=== PATIENT | male | born 1960 | race Caucasian/White ===

== ENCOUNTER 2023-12-25 09:21 | Emergency (ER) | payer BC, SELFPAY ==
[2023-12-25 09:25] VITALS: BP 145/105
--- NOTE | 2023-12-25 09:42 | ED.GENMED ---
History of Present Illness
General
Chief Complaint: Abdominal Symptoms
Time Seen by Provider: 12/25/23 09:42
Travel History
Have you had any contact with someone who has COVID-19?: No
Do you have any symptoms of coronavirus? Fever > 100 degrees, chills, cough, shortness of breath, sore throat, loss of taste or smell, muscle aches, or headache?: No
History of Present Illness
History of Present Illness:
HPI: The patient presents with abdominal distention. He has a history of GERD but no longer takes a PPI routinely. He did take 1 dose of a PPI yesterday. He had some fevers recently over the last couple of days. He had some minimal nausea but
has not been vomiting. Currently does not have nausea. The discomfort in the abdomen radiates to the left anterolateral chest. He occasionally drinks alcohol
EXAM:
GENERAL: Well appearing in no distress
HEENT: Moist oral mucosa
CARDIOVASCULAR: No murmurs, normal heart rate, regular rhythm, No chest wall tenderness
PULMONARY: No respiratory distress, breath sounds are clear and equal
ABDOMEN: Soft with no peritoneal signs, no tenderness, elevated BMI
NEUROLOGIC: Excellent strength all extremities, no coordination deficits
PSYCHIATRIC: Appropriate mental status, normal insight and judgement
EXTREMITIES: Nontender, no edema, moves all extremities equally
SKIN: No rash, no lesions
TIME OF INITIAL ENCOUNTER: 10 AM
NUMBER AND COMPLEXITY OF PROBLEMS ADDRESSED AT THE ENCOUNTER
� Chronic conditions affecting care: No significant past medical history
� Acute Exacerbation and/or Progression of Chronic Illness: This is an acute problem
� Differential Diagnosis includes: Bowel obstruction, GERD, esophagitis, mesenteric adenitis, based on location highly doubt appendicitis
AMOUNT AND/OR COMPLEXITY OF DATA TO BE REVIEWED AND ANALYZED
� I performed an independent evaluation of and my interpretation is:
EKG:
CT: I personally reviewed CT imaging and agree with radiologist interpretation�he suspects acute pancreatitis however there is no evidence of choledocholithiasis
X-rays:
Laboratory Studies: CBC unremarkable, chemistries including lipase and transaminases unremarkable
Other:
� Review of other/old records: I reviewed colonoscopy report from May 2023
� Clinical information was obtained by an independent historian: Spoke to family member at bedside
� Prescriptions/Medications Considered but not given:
� Further testing considered but not performed:
RISK OF COMPLICATIONS AND/OR MORBIDITY OR MORTALITY OF PATIENT MANAGEMENT
� Social determinants of health affecting care: Lives at home
� Discussion with other providers: Given the unclear etiology of patient's symptoms with abnormal CT, notified Dr. Gregory. We agree with close outpatient management as the patient is well-appearing and has not required any narcotic
analgesia here. Also recommended BRAT diet.
� Escalation of care including admission/observation vs risk of discharge considered: Declines analgesia however will obtain CT imaging given the fever and acute symptoms. CT imaging suggests pancreatitis with inflammatory
changes of the pancreatic head. However the lipase is normal. The white count is top normal. LFTs are normal. No other abnormality noted on CT imaging. The patient is very well-appearing on reassessment at 1:30 PM. I discussed with GI.
Recommended the BRAT diet / cessation of alcohol.
Past History
Social History
Tobacco: Non-smoker
Phy Exam
Physical Exam
Physical Exam:
See HPI
Course
Orders/Labs/Results
Orders:
Orders
12/25/23 09:45
0.9% Sodium Chloride 1000 ml [Nss] 1,000 ml IV BOLUS
12/25/23 09:53
Complete Blood Count/With Diff Urgent
Comprehensive Metabolic Panel Urgent
Lipase Urgent
12/25/23 09:59
CT Abd/pelvis W Iv Cont Urgent
Comment:
Reason For Exam: abd distension, fevers
Abnormal Lab Results
12/25/23
09:53
Absolute Neuts (auto) 7.3 H 10^3/uL
(1.4-6.5)
Absolute Monos (auto) 1.1 H 10^3/uL
(0.1-0.6)
Lymphocytes % 19.2 L %
(20.5-51.1)
Monocytes % 10.1 H %
(1.7-9.3)
Glucose 119 H mg/dl
(70-99)
12/25/23 09:53
12/25/23 09:53
Vital Signs
Initial and Last Documented VS:
Initial Vital Signs
Temp Pulse Resp BP Pulse Ox
98.1 F 78 16 145/105 98
12/25/23 09:25 12/25/23 09:25 12/25/23 09:25 12/25/23 09:25 12/25/23 09:25
Last Documented Vital Signs
Temp Pulse Resp BP Pulse Ox
98.1 F 78 16 145/105 98
12/25/23 09:25 12/25/23 09:25 12/25/23 09:25 12/25/23 09:25 12/25/23 09:25
*Critical Care Note
Total Time (30-74mins, 75-104mins- exclusive of procedures): Not Applicable
ED Attending Note
-
Portions of this chart may have been created with voice recognition software.� Occasional wrong word or��sound alike� substitutions may have occurred due to the inherent limitations of voice recognition software.
Discharge Plan
Departure
Patient Disposition: Home (Routine Discharge)
Date of Disposition: 12/25/23
Time of Disposition: 13:31
Patient with high blood pressure during this ER visit?: Yes
Discharge Problem:
Acute epigastric pain
Instructions: Pancreatitis (DC), [place] Diet
Prescriptions:
No Action
hydrocodone-ibuprofen 1 TAB tablet
1 tab PO .Q4-6HPRN PRN (Reason: pain) Qty: 20 0RF
Referrals:
Maxim Weems MD [Active] - Follow up in 2-3 days
Jaden Jensen CRNP [Family Provider] -
Activity Restrictions/Additional Instructions:
The cause of your pain is unclear. The CAT scan suggested pancreatitis as there was some inflammation around the pancreatic head however the main test that we do looking for signs of pancreatitis was normal�her lipase was normal at 188. The
radiologist sees a normal appendix. There was no sign of abscess or any other sign of infection. There are no signs of dilation of the biliary system. There was no sign of stones seen in the common bile duct. You do have a fatty liver which is
mild. This would not cause pain. The radiologist indicated 'no suspicious focal pancreatic lesion identified'. There is no sign of bowel obstruction. The aorta is normal. Your white count was normal. Liver tests were normal. I spoke to Dr. Gregory
(with Dr. Cavazos)�please follow-up their office�they should be calling you for follow-up. Dr. Gregory recommends a BRAT diet (bananas, rice, applesauce, toast). I recommend waiting until later on today before eating (a few more hours). Stay hydrated,
but we did give you a bag of fluids. Return here if worse.
Interventions
Interventions:
*ED COVID-19 Vaccine History Last Done: 12/25/23 09:25
Discharge Date and Time
Print Language: MOLDOVAN
[2023-12-25 10:04] LABS: % Basophils 0.6 % (0-2); % Eosinophils 2.7 % (0-6); % Immature Granulocytes 0.4 % (0-0.5); % Lymphocytes 19.2 % (20.5-51.1); % Monocytes 10.1 % (1.7-9.3); Absolute Basophils 0.1 10^3/uL (0-0.2); Absolute Eosinophils 0.3 10^3/uL (0-0.7); Absolute Lymphocytes 2.1 10^3/uL (1.2-3.4); Absolute Monocytes 1.1 10^3/uL (0.1-0.6); Absolute Neutrophils 7.3 10^3/uL (1.4-6.5); Hematocrit 46.5 % (39.0-52.0); Hemoglobin 16.2 g/dL (13.0-18.0); Mean Corp Hgb Conc. 34.8 g/dL (33.0-37.0); Mean Corpuscular Hgb 28.2 pg (27.0-31.0); Mean Corpuscular Volume 80.9 fL (80.0-94.0); Mean Platelet Volume 9.3 fL (7.4-10.4); Nucleated Red Blood Cells % 0 % (-); Platelet Count 297 10^3/uL (130-400); Red Blood Cell Count 5.75 10^6/uL (4.70-6.10); Red Cell Dist. Width 13.1 % (11.5-14.5); White Blood Cell Count 10.8 10^3/uL (4.8-10.8)
[2023-12-25] MEDS: NSS 1000 IV (10:19)
[2023-12-25 10:20] LABS: ALT (SGPT) 25 U/L (0-50); AST (SGOT) 23 U/L (17-59); Albumin 4.5 g/dl (3.5-5.0); Alkaline Phosphatase 66 U/L (38-126); Blood Urea Nitrogen 14 mg/dl (9-20); Calcium 9.7 mg/dl (8.4-10.2); Carbon Dioxide 27 mmol/L (22-30); Chloride 103 mmol/L (98-107); Glucose 119 mg/dl (70-99); Lipase 188 U/L (23-300); Potassium 3.9 mmol/L (3.5-5.1); Sodium 137 mmol/L (135-145); Total Protein 7.2 g/dl (6.3-8.2); eGFR > 60.00
[2023-12-25 13:47] VITALS: BP 134/79
== END 2023-12-25 13:57 | disposition home or self-care (01) ==
LOC: EMR 09:21
PROVIDERS: EMERGENCY PHYSICIAN Emergency Medicine; FAMILY PHYSICIAN Nurse Practitioner Family
DX: R10.13 Epigastric pain (principal); R14.0 Abdominal distension (gaseous); R50.9 Fever, unspecified; R03.0 Elevated blood-pressure reading, without diagnosis of hypertension
CPT/HCPCS: 99285; 96360; 74177; 80053; 83690; 85025; Q9967

== ENCOUNTER → 2024-01-22 06:26 | Day surgery (SDC) | payer BC, SELFPAY | LOC: GI 06:26 | PROVIDERS: ATTENDING PHYSICIAN Internal Medicine | DX: K22.2 Esophageal obstruction (principal); K31.89 Other diseases of stomach and duodenum; K31.7 Polyp of stomach and duodenum; R10.13 Epigastric pain; R13.10 Dysphagia, unspecified | CPT/HCPCS: 43249; 43239; 88305; 88342 ==

== ENCOUNTER → 2024-01-29 18:26 | Outpatient (REF) | payer BC, SELFPAY | LOC: MRI 18:26 | PROVIDERS: ATTENDING PHYSICIAN Internal Medicine; FAMILY PHYSICIAN Nurse Practitioner Family | DX: K85.90 Acute pancreatitis without necrosis or infection, unspecified (principal) | CPT/HCPCS: 74183; A9575 ==